=== PATIENT | female | born 1980 | race Caucasian/White ===

== ENCOUNTER 2016-10-25 13:26 | Emergency (ER) | payer MEDICAID ==
[~2016-10-25] VITALS: Ht 152.4 cm; Wt 72.6 kg
[2016-10-25 13:39] VITALS: BP 117/77
[2016-10-25] MEDS ORDERED: CYCLOBENZAPRINE 10 MG TABLET. PO ONE (14:30)
[2016-10-25] MEDS ORDERED: HYDROCODONE/APAP 5/325MG TABLET. PO ONE (14:30)
--- NOTE | 2016-10-25 15:19 | RAD ---
Indication fall 4 days ago. Pain to the lower back. AP and lateral views of the lumbar spine were obtained. A coned view targeted to the lumbosacral junction was also obtained. The history of fractured coccyx has been provided. The lumbar spine appears normal. Vertebral height alignment and disc spaces are unremarkable. There is slight deformity of the coccyx which would be compatible with the history provided, prior fracture. IMPRESSION: Normal plain films of the lumbar spine
[2016-10-25] MEDS ORDERED: ACET-704 PO (15:30)
[2016-10-25] MEDS ORDERED: CYCL10TA2 PO (15:30)
--- NOTE | 2016-10-25 15:31 | PHYS DOC ---
Past Medical History Past Medical History: No Pertinent History, Other Additional Past Medical Histor: pelvic fractures, fractured ribs Past Surgical History: Appendectomy, Cholecystectomy, Tubal ligation, Other Additional Past Surgical Histo: Cyst on ovaries, pelvic repair Alcohol Use: None Drug Use: None Adult General Chief Complaint Chief Complaint: LOWER BACK PAIN OR INJURY HPI HPI Patient is a 36 year old female who presents with moderate tailbone pain that began 3 days ago after she fell down 2 or 3 steps. Patient denies any loss of consciousness. Patient states the pain radiates to the right lower extremity. Denies any loss of bowel bladder function. Denies any numbness or tingling to bilateral lower extremities. She states she has broken her tailbone before. Review of Systems Review of Systems Constitutional: Denies fever or chills [] Eyes: Denies change in visual acuity, redness, or eye pain [] HENT: Denies nasal congestion or sore throat [] Musculoskeletal: Coccyx pain Integument: Denies rash or skin lesions [] Neurologic: Denies headache, focal weakness or sensory changes [] Endocrine: Denies polyuria or polydipsia [] Current Medications Current Medications Current Medications Medications (Trade) Dose Ordered Sig/Alex Start Time Stop Time Status Last Admin Dose Admin Acetaminophen/ Hydrocodone Bitart (Lortab 5/325) 2 tab 1X ONCE 10/25/16 14:30 10/25/16 14:31 DC 10/25/16 14:35 2 TAB Cyclobenzaprine HCl (Flexeril) 10 mg 1X ONCE 10/25/16 14:30 10/25/16 14:31 DC 10/25/16 14:35 10 MG Allergies Allergies Allergies Coded Allergies Type Severity Reaction Last Updated Verified propoxyphene Allergy Severe 04/23/14 Yes Physical Exam Physical Exam Constitutional: Well developed, well nourished, no acute distress, non-toxic appearance. [] HENT: Normocephalic, atraumatic, bilateral external ears normal, oropharynx moist, no oral exudates, nose normal. [] Abdomen: Bowel sounds normal, soft, no tenderness, no masses, no pulsatile masses. [] Skin: Warm, dry, no erythema, no rash. [] Back: Moderate coccyx tenderness on exam, positive right leg straight raises, no CVA tenderness. [] Extremities: No tenderness, no cyanosis, no clubbing, ROM intact, no edema. [] Neurologic: Alert and oriented X 3, normal motor function, normal sensory function, no focal deficits noted. [] Psychologic: Affect normal, judgement normal, mood normal. [] Current Patient Data Vital Signs Vital Signs Date Time Temp Pulse Resp B/P Pulse Ox O2 Delivery O2 Flow Rate FiO2 10/25/16 14:35 18 98 Room Air 10/25/16 13:39 97.9 110 97.9 EKG EKG [] Radiology/Procedures Radiology/Procedures [] Course & Med Decision Making Course & Med Decision Making Pertinent Labs and Imaging studies reviewed. (See chart for details) Evaluation shows patient has coccyx contusion after falling. X-rays of the lumbar spine interpreted by radiologist are negative for any acute findings. Do not cushion recommended. Ice recommended to the area. Follow-up with PCP in one week. Dragon Disclaimer Dragon Disclaimer This electronic medical record was generated, in whole or in part, using a voice recognition dictation system. Departure Departure Impression: Primary Impression: Fall down steps Additional Impression: Lumbar contusion Disposition: 01 HOME, SELF-CARE Condition: STABLE (patient is) Referrals: NO PCP (PCP) Follow-up with your own doctor in one week FOREIGN JOE II, MD You can follow-up with the provided orthopedic doctor in a week Patient Instructions: Contusion Additional Instructions: You were seen for lumbar contusion after falling. Take the prescribed medicines as ordered. You can apply heat to ice to the affected area. Consider getting a donut cushion to sit on. Scripts Hydrocodone/Apap 5-325 ([place] 5-325 Tablet)1 Each Tablet1 Tab PO Q6-8HRS PRN PAIN #2 TAB Prov:MUTUNGA,JAYLEN [employer] EXAMINER 10/25/16 Hydrocodone/Apap 5-325 ([place] 5-325 Tablet)1 Each Tablet1 Tab PO TID #10 TAB Prov:MUTUNGA,JAYLEN [employer] EXAMINER 10/25/16 Cyclobenzaprine Hcl 10 Mg Tablet1 Tab PO TID #30 TAB Prov:MUTUNGA,JAYLEN [employer]ME EXAMINER 10/25/16 Acetaminophen With Codeine (Tylenol With Codeine #3 Tablet)1 Each Tablet1 Tab PO PRN Q4HRS PRN PAIN #30 TAB Prov:MUTUNGA,JAYLEN [employer] EXAMINER 10/25/16 Problem Qualifiers Primary Impression: Fall down steps Encounter type: initial encounter Qualified Code: W10.8XXA - Fall (on) (from ) other stairs and steps, initial encounter Additional Impression: Lumbar contusion Encounter type: initial encounter Qualified Code: S30.0XXA - Contusion of lower back and pelvis, initial encounter JAYLEN EASTMAN APRN Oct 25, 2016 15:31
[2016-10-25] MEDS ORDERED: HYDR-971 PO ×2 (15:38→15:45)
[2016-10-25] MEDS ORDERED: NAPR500T8 PO (15:52)
[2016-10-25] MEDS ORDERED: METH-37 PO (15:53)
== END 2016-10-25 15:48 | disposition home or self-care (01) ==
LOC: ER 13:26
DX: S30.0XXA Contusion of lower back and pelvis, initial encounter (principal); Z90.49 Acquired absence of other specified parts of digestive tract; Z98.51 Tubal ligation status; Z88.8 Allergy status to other drugs, medicaments and biological substances; W10.8XXA Fall (on) (from) other stairs and steps, initial encounter; Y93.89 Activity, other specified; Y92.89 Other specified places as the place of occurrence of the external cause; Y99.8 Other external cause status
CPT/HCPCS: 72100; 99284-25

== ENCOUNTER 2017-06-08 18:30 | Emergency (ER) | payer MEDICAID ==
[~2017-06-08 18:30] MED LIST: ACET-704 PO; CYCL10TA2 PO; HYDR-971 PO; METH-37 PO; NAPR500T8 PO
[2017-06-08 18:38] VITALS: BP 146/68
[2017-06-08] MEDS ORDERED: BUPIVACAINE 0.5% 50 ML VIAL. INFIL ONE (18:45)
[2017-06-08] MEDS ORDERED: NAPR500T PO (18:47)
[2017-06-08] MEDS ORDERED: CLIN300C8 PO (18:47)
--- NOTE | 2017-06-08 18:47 | PHYS DOC ---
Past Medical History Past Medical History: No Pertinent History, Other Additional Past Medical Histor: pelvic fractures, fractured ribs Past Surgical History: Appendectomy, Cholecystectomy, Tubal ligation, Other Additional Past Surgical Histo: Cyst on ovaries, pelvic repair Alcohol Use: None Drug Use: None Adult General Chief Complaint Chief Complaint: DENTAL PROBLEM HPI HPI Patient is a 37 year old female presents to the ED with c/o left lower dental pain for several weeks. She was evaluated at [facility] and is saving her money for care of the tooth. She's here now seeking evaluation for pain management and a prescription for antibiotics. She reports no fever, no difficulty with swallowing or phonation. Review of Systems Review of Systems Constitutional: Denies fever or chills [] Eyes: Denies change in visual acuity, redness, or eye pain [] HENT: Denies nasal congestion or sore throat, dental pain [] Respiratory: Denies cough or shortness of breath [] Cardiovascular: No additional information not addressed in HPI [] GI: Denies abdominal pain, nausea, vomiting, bloody stools or diarrhea [] : Denies dysuria or hematuria [] Musculoskeletal: Denies back pain or joint pain [] Integument: Denies rash or skin lesions [] Neurologic: Denies headache, focal weakness or sensory changes [] Endocrine: Denies polyuria or polydipsia [] All other systems were reviewed and found to be within normal limits, except as documented in this note. Allergies Allergies Allergies Coded Allergies Type Severity Reaction Last Updated Verified propoxyphene Allergy Severe 04/23/14 Yes Physical Exam Physical Exam Constitutional: Well developed, well nourished, no acute distress, non-toxic appearance. [] HENT: Normocephalic, atraumatic, bilateral external ears normal, oropharynx moist, no oral exudates, nose normal. #17 with caries, surrounding gingiva with erythema, tooth tender to palpate. [] Neck: Normal range of motion, no tenderness, supple, adenopathy , no stridor. [ ] Cardiovascular:Heart rate regular rhythm, no murmur [] Lungs & Thorax: Bilateral breath sounds clear to auscultation [] Skin: Warm, dry, no erythema, no rash. [] Neurologic: Alert and oriented X 3, normal motor function, normal sensory function, no focal deficits noted. [] EKG EKG [] Radiology/Procedures Radiology/Procedures [] Course & Med Decision Making Course & Med Decision Making Mental block, bupivacaine 0.5% 2 mL. Patient tolerated well. Pertinent Labs and Imaging studies reviewed. (See chart for details) [] Dragon Disclaimer Dragon Disclaimer This electronic medical record was generated, in whole or in part, using a voice recognition dictation system. Departure Departure Impression: Primary Impression: Infected dental caries Disposition: HOME, SELF-CARE Condition: STABLE Referrals: NO PCP (PCP) [facility] Patient Instructions: Dental Abscess, Dental Caries Scripts Naproxen (NAPROSYN) 500 Mg Tablet 500 MG PO BID, #20 TAB Prov: DAYNA CORTEZ APRN 06/08/17 Clindamycin Hcl (CLINDAMYCIN HCL) 300 Mg Capsule 1 CAP PO TID, #30 CAP Prov: DAYNA CORTEZ APRN 06/08/17 DAYNA CORTEZ APRN Jun 08, 2017 18:47
== END 2017-06-08 19:00 | disposition home or self-care (01) ==
LOC: ER 18:30
DX: K04.7 Periapical abscess without sinus (principal); K02.9 Dental caries, unspecified; Z88.8 Allergy status to other drugs, medicaments and biological substances; Z90.49 Acquired absence of other specified parts of digestive tract
CPT/HCPCS: 64400; 99284-25

== ENCOUNTER 2017-08-28 16:59 | Emergency (ER) | payer MEDICAID ==
[2017-08-28 18:21] LABS: BACTERIA,URINE MANY /HPF (0-FEW); BILIRUBIN,URINE NEGATIVE (NEG); CLARITY,URINE CLOUDY; COLOR,URINE YELLOW; GLUCOSE,URINE NEGATIVE (NEG); NITRITE,URINE NEGATIVE (NEG); PH,URINE 6.5; PROTEIN,URINE NEGATIVE (NEG-TRACE); RBC,URINE 0 /HPF (0-2); SQUAMOUS EPITHELIAL CELL,UR MANY /LPF
[2017-08-28 18:43] LABS: INFLUENZA A PATIENT NEGATIVE (NEGATIVE); INFLUENZA B PATIENT NEGATIVE (NEGATIVE); OBC FLU VALID
== END 2017-08-28 20:41 | disposition home or self-care (01) ==
LOC: ER 20:41
DX: N39.0 Urinary tract infection, site not specified (principal); J06.9 Acute upper respiratory infection, unspecified; K21.9 Gastro-esophageal reflux disease without esophagitis; Z90.49 Acquired absence of other specified parts of digestive tract; Z98.51 Tubal ligation status; Z88.8 Allergy status to other drugs, medicaments and biological substances
CPT/HCPCS: 81001; 87086; 87804; 87804-59; 99284